=== PATIENT | female | born 1985 | race Caucasian/White ===

== ENCOUNTER 2019-08-08 12:48 | Emergency (ER) | payer OTHER ==
[~2019-08-08] VITALS: Ht 167.6 cm; Wt 72.6 kg
== END 2019-08-08 18:15 | disposition home or self-care (01) ==
LOC: ER 12:48
DX: O20.0 Threatened abortion (principal)

== ENCOUNTER → 2020-05-03 | Outpatient (CLI) | payer OTHER | END | disposition home or self-care (01) | LOC: PRENATAL 12:51 | PROVIDERS: ATTEND Obstetrics & Gynecology | DX: O99.89 Other specified diseases and conditions complicating pregnancy, childbirth and the puerperium (principal); O09.522 Supervision of elderly multigravida, second trimester; Z3A.21 21 weeks gestation of pregnancy ==

== ENCOUNTER → 2020-06-16 | Outpatient (CLI) | payer OTHER | END | disposition home or self-care (01) | LOC: PRENATAL 09:30 | PROVIDERS: ATTEND Obstetrics & Gynecology Maternal & Fetal Medicine | DX: O26.843 Uterine size-date discrepancy, third trimester (principal); O09.523 Supervision of elderly multigravida, third trimester; O34.211 Maternal care for low transverse scar from previous cesarean delivery; O99.89 Other specified diseases and conditions complicating pregnancy, childbirth and the puerperium; Z36.89 Encounter for other specified antenatal screening ==

== ENCOUNTER 2020-08-23 07:45 | Inpatient (IN) | payer OTHER ==
[~2020-08-23] VITALS: Ht 167.6 cm; Wt 3.2 kg
[2020-08-24] MEDS ORDERED: FOLIC ACID0.8 M1 PO (11:55)
[2020-08-24] MEDS ORDERED: PRENATAL TABLE1 EAC1 PO (11:55)
[2020-08-24] MEDS ORDERED: SYNTHROID88 MCG PO (11:55)
[2020-08-27] MEDS ORDERED: CODE1TAB37 PO (12:24)
[2020-08-27] MEDS ORDERED: DOCUSATE SODIU100 MG PO (12:24)
[2020-08-27] MEDS ORDERED: IBUPROFEN400 MG PO (12:24)
== END 2020-08-27 13:31 | disposition home or self-care (01) | DRG 788 ==
LOC: OB/GYN 08-24 07:45 → O/R 08-24 10:02 → OB/GYN 08-24 10:02
PROVIDERS: ADMIT Obstetrics & Gynecology; ATTEND Obstetrics & Gynecology
PROC: 4A1HXCZ Monitoring of Products of Conception, Cardiac Rate, External Approach (ICD-10-PCS; 2020-08-24)
PROC: 10D00Z1 Extraction of Products of Conception, Low, Open Approach (ICD-10-PCS; principal; 2020-08-24 16:15)
DX: O34.211 Maternal care for low transverse scar from previous cesarean delivery (principal); O82 Encounter for cesarean delivery without indication; Z3A.38 38 weeks gestation of pregnancy; Z37.0 Single live birth; Z22.330 Carrier of Group B streptococcus

== ENCOUNTER → 2021-09-09 | Emergency (ER) | payer OTHER ==
[~2021-09-09] VITALS: Ht 167.6 cm; Wt 69.9 kg
[~2021-09-09] MED LIST: CODE1TAB37 PO; DOCUSATE SODIU100 MG PO; FOLIC ACID0.8 M1 PO; IBUPROFEN400 MG PO; INTESTINEX680 M1 PO; PRENATAL TABLE1 EAC1 PO; SYNTHROID; SYNTHROID88 MCG PO
== END | disposition home or self-care (01) ==
LOC: ER 17:54
DX: K52.89 Other specified noninfective gastroenteritis and colitis (principal); Z20.822 Contact with and (suspected) exposure to COVID-19

== ENCOUNTER 2023-04-11 15:40 | Emergency (ER) | payer OTHER ==
[~2023-04-11] VITALS: Ht 167.6 cm; Wt 72.6 kg
== END 2023-04-11 23:46 | disposition home or self-care (01) ==
LOC: ER 15:40
DX: Z56.6 Other physical and mental strain related to work (principal); E05.80 Other thyrotoxicosis without thyrotoxic crisis or storm; Z88.2 Allergy status to sulfonamides; Z20.822 Contact with and (suspected) exposure to COVID-19

== ENCOUNTER 2025-02-08 14:55 | Emergency (ER) | payer OTHER ==
[~2025-02-08] VITALS: Ht 167.6 cm; Wt 77.1 kg
[2025-02-08] MEDS ORDERED: KETOROLAC TROMETHAMINE 60 MG VIAL IM ONE (16:30)
[2025-02-08 16:54] LABS: HEMATOCRIT 35.5 % (36.0-45.00); HEMOGLOBIN 11.7 g/dL (12.0-15.00); MEAN CELL VOLUME 77.9 fL (80.00-100.00); MEAN CORPUSCULAR HEMOGLOBIN 25.6 pg (27.00-32.0); MEAN CORPUSCULAR HGB CONC 32.8 g/dl (32.0-36.0); PLATELET COUNT 369 K/uL (150-450); RED BLOOD COUNT 4.56 M/uL (4.00-6.00); RED CELL DISTRIBUTION WIDTH 16.4 % (11.5-14.5)
[2025-02-08 17:17] LABS: CALCIUM 9.2 mg/dL (8.5-10.1); CREATININE SERUM 0.73 mg/dL (0.55-1.02); GFR 88.3; PH,URINE 6.5 (5.0-8.0); POTASSIUM 4.06 mEq/L (3.5-5.1); URINE APPEARANCE Clear; URINE BILIRRUBIN Negative (NEGATIVE); URINE BLOOD Moderate; URINE COLOR Yellow; URINE GLUCOSE Negative (NEGATIVE); URINE KETONE Negative (NEGATIVE); URINE LEUKOCYTE Trace; URINE NITRATE Negative; URINE PROTEIN Negative (NEGATIVE); URINE UROBILINOGEN 0.2 E.U./dl
[2025-02-08 17:21] LABS: URINE BACTERIA 931.4 uL (0.0-1933); URINE EPITHELIAL CELLS 74.2 uL (0.0-38.8); URINE RBC 4.7 uL (0.0-20.8); URINE WBC 46.2 uL (0.0-23.2)
== END 2025-02-08 18:59 | disposition home or self-care (01) ==
LOC: ER 14:57
PROVIDERS: Emergency Medicine
DX: M54.9 Dorsalgia, unspecified (principal); Z88.2 Allergy status to sulfonamides; E03.8 Other specified hypothyroidism
CPT/HCPCS: 36415; 72131; 74176; 96372; 99284; J1885